=== PATIENT | male | born 1935 | race Caucasian/White ===

== ENCOUNTER → 2018-01-04 | Outpatient (REF) | payer MEDICARE, OTHER ==
[2018-01-04 18:26] LABS: IRON (FE) 18 UG/DL (65-175); PERCENT SATURATION 3.3 % (19.7-50.0); TOTAL IRON BINDING CAPACITY 551 UG/DL (250-450)
[2018-01-07 11:51] LABS: FOLATE > 24.0 NG/ML
== END ==
LOC: M LAB REF 16:40
DX: D64.9 Anemia, unspecified (principal)
CPT/HCPCS: 82746

== ENCOUNTER → 2020-02-04 | Outpatient (REF) | payer MEDICARE, OTHER ==
[~2020-02-04] MED LIST: ADVA1AER2 INH; ALBU17IN INH; ASPI325T PO; HYDR25TA6; LIPI10TA PO; PLAV1TAB2 PO; PLAV75TA2; PROT1TAB2; RAMI1CAP26 PO; TIOTROPIUM INH; [UNRECOGNIZED DRUG - OTHER] INH
== END ==
LOC: M LAB REF 15:17
PROVIDERS: ATTEND Surgery
DX: C44.529 Squamous cell carcinoma of skin of other part of trunk (principal)

== ENCOUNTER → 2021-11-30 | Outpatient (REF) | payer MEDICARE, OTHER | LOC: M LAB REF 12:13 | PROVIDERS: ATTEND Internal Medicine | DX: D50.9 Iron deficiency anemia, unspecified (principal) ==

== ENCOUNTER → 2022-06-08 | Outpatient (REF) | payer MEDICARE, OTHER ==
[~2022-06-08] MED LIST changes: +CLOP75TA99 PO; -PLAV1TAB2 PO
[2022-06-08 20:04] LABS: PERCENT SATURATION 80.6 % (19.7-50.0)
== END ==
LOC: M LAB REF 16:14
PROVIDERS: ATTEND Nurse Practitioner Family
DX: D50.9 Iron deficiency anemia, unspecified (principal)

== ENCOUNTER → 2022-08-16 | Outpatient (REF) | payer MEDICARE, OTHER ==
[2022-08-16 17:38] LABS: PERCENT SATURATION 11.3 % (19.7-50.0)
== END ==
LOC: M LAB REF 16:28
PROVIDERS: ATTEND Internal Medicine
DX: D50.9 Iron deficiency anemia, unspecified (principal)

== ENCOUNTER → 2022-12-15 | Outpatient (REF) | payer MEDICARE, OTHER ==
[2022-12-15 17:18] LABS: PERCENT SATURATION 38.5 % (19.7-50.0)
== END ==
LOC: M LAB REF 16:07
PROVIDERS: ATTEND Internal Medicine
DX: D50.9 Iron deficiency anemia, unspecified (principal)

== ENCOUNTER → 2023-11-21 | Outpatient (CLI) | payer MEDICARE, BC ==
[~2023-11-21] MED LIST changes: +FLUT1BLS5 INH; +PANT40TA29 PO; +RAMI10CA64 PO; -RAMI1CAP26 PO
== END ==
LOC: M ONCR 08:30
PROVIDERS: ATTEND General Practice
DX: C44.329 Squamous cell carcinoma of skin of other parts of face (principal); Z98.890 Other specified postprocedural states; F17.210 Nicotine dependence, cigarettes, uncomplicated; Z79.51 Long term (current) use of inhaled steroids; Z79.899 Other long term (current) drug therapy; Z80.8 Family history of malignant neoplasm of other organs or systems